=== PATIENT | male | born 1990 | race Caucasian/White ===

== ENCOUNTER 2019-11-13 12:11 | Emergency (ER) | payer MEDICAID ==
[~2019-11-13] VITALS: Ht 170.2 cm; Wt 70.5 kg
[2019-11-13 12:12] VITALS: BP 127/70
== END 2019-11-13 14:10 | disposition left against medical advice (07) ==
LOC: EMS 12:16
DX: M25.512 Pain in left shoulder (principal); Z53.21 Procedure and treatment not carried out due to patient leaving prior to being seen by health care provider